=== PATIENT | female | born 1980 | race African-American/Black ===

== ENCOUNTER 2022-05-15 21:16 | Emergency (ER) | payer OTHER ==
[2022-05-15] MEDS ORDERED: Lidocaine Viscous Sol 2% 15 ml UD Cup ONE (21:45)
== END 2022-05-15 22:48 | disposition home or self-care (01) ==
LOC: CSHERS 21:16
DX: K64.4 Residual hemorrhoidal skin tags (principal); K21.9 Gastro-esophageal reflux disease without esophagitis
CPT/HCPCS: 99283

== ENCOUNTER 2023-01-10 07:33 | Emergency (ER) | payer OTHER ==
[2023-01-10] MEDS ORDERED: Ondansetron ODT 4 MG TAB ONE (08:12)
[2023-01-10 08:44] LABS: SARS-CoV-2 NAA Rapid Test Not Detected (NotDetected)
== END 2023-01-10 09:09 | disposition home or self-care (01) ==
LOC: CSHERS 07:33
DX: J06.9 Acute upper respiratory infection, unspecified (principal); Z20.822 Contact with and (suspected) exposure to COVID-19
CPT/HCPCS: 99283; Q0162

== ENCOUNTER 2024-10-17 08:37 | Outpatient (CLI) | payer OTHER | END 2024-10-17 08:38 | disposition home or self-care (01) | LOC: CSHSLEEP 08:37 | PROVIDERS: ATTEND Internal Medicine | DX: G47.30 Sleep apnea, unspecified (principal); R53.83 Other fatigue; R09.89 Other specified symptoms and signs involving the circulatory and respiratory systems; G25.89 Other specified extrapyramidal and movement disorders; R51.9 Headache, unspecified; R06.83 Snoring; E66.9 Obesity, unspecified; Z68.34 Body mass index [BMI] 34.0-34.9, adult | CPT/HCPCS: 95810 ==